=== PATIENT | male | born 1965 | race Caucasian/White ===

== ENCOUNTER 2019-03-27 02:22 | Emergency (ER) | payer MEDICAID ==
[~2019-03-27] VITALS: Ht 177.8 cm; Wt 88.5 kg
[2019-03-27 02:47] LABS: Basophils # (auto) 0.1 uL; Eosinophils # (auto) 0.1 uL; Hemoglobin 17.9 g/dL (13.5-17.5); Mean Corpuscular Volume 86.6 fL (80.0-100.0); Monocytes # (auto) 0.7 uL
[2019-03-27 02:49] LABS: Eosinophils % (auto) 1.8 % (0.0-7.0); Hematocrit 50.9 % (41.0-53.0); Lymphocytes # (auto) 3.1 uL; Lymphocytes % (auto) 38.4 % (10.0-50.0); Mean Corpuscular Hemoglobin 30.4 pg (28.0-32.0); Mean Corpuscular Hgb Conc. 35.1 g/dL (32.0-36.0); Monocytes % (auto) 8.5 % (0.0-12.0); Neutrophils % (auto) 50.3 % (37.0-80.0); Nucleated Red Blood Cells % 0.3 %; Platelet Count (auto) 214 10^3/uL (140-450); Red Blood Cells 5.88 10^6/uL (4.5-5.90)
[2019-03-27 03:05] LABS: Albumin 4.1 g/dL (3.4-5.0); Anion Gap 7 (5-15); Calcium 8.4 mg/dL (8.5-10.1); Carbon Dioxide 26 mmol/L (21-32); Chloride 105 mmol/L (98-107); Glucose 109 mg/dL (74-106); Sodium 138 mmol/L (136-145)
[2019-03-27 03:08] LABS: Alanine Aminotransferase 91 U/L (16-61); Aspartate Aminotransferase 41 U/L (15-37); BUN/Creatinine Ratio 8.6; Bilirubin, Total 0.6 mg/dL (0.2-1.0); Blood Urea Nitrogen 9 mg/dL (7-18); GFR African American 95 mL/min; GFR Non-African American 79 mL/min; INR 0.95 (0.9-1.15); Partial Thromboplastin Time 24.6 sec (23.64-32.05); Total Protein 7.6 g/dL (6.4-8.2)
[2019-03-27 03:10] LABS: Alkaline Phosphatase 86 U/L (45-117)
[2019-03-27 06:37] VITALS: BP 139/89
== END 2019-03-27 06:18 | disposition home or self-care (01) ==
LOC: ER 02:26
DX: K29.70 Gastritis, unspecified, without bleeding (principal); I10 Essential (primary) hypertension; I25.2 Old myocardial infarction; Z98.61 Coronary angioplasty status
CPT/HCPCS: 36415; 71045; 80053; 83690; 83880; 84484; 85025; 85610; 85730; 93005

== ENCOUNTER 2025-06-04 05:22 | Emergency (ER) | payer MEDICAID, OTHER ==
[~2025-06-04] VITALS: Ht 177.8 cm; Wt 97.8 kg
[~2025-06-04 05:22] MED LIST: ASPI-543 PO; ATOR-507 PO; CARV3.1240 PO; CLOP75TA70 PO; LISI-275 PO
[2025-06-04 05:24] VITALS: BP 174/90; PULSE 73; RESP 16; TEMP 97.9; O2SAT 95
== END 2025-06-04 08:35 | disposition left against medical advice (07) ==
LOC: MERGE 05:22 → ER 05:22
DX: K59.00 Constipation, unspecified (principal); Z53.21 Procedure and treatment not carried out due to patient leaving prior to being seen by health care provider